=== PATIENT | female | born 1970 | race Two or more races ===

== ENCOUNTER 2022-09-13 08:40 | Outpatient (CLI) | payer OTHER | END 2022-09-13 08:45 | disposition home or self-care (01) | LOC: SONOGRAMA 08:40 | PROVIDERS: ATTEND Pathology Anatomic Pathology | DX: E04.2 Nontoxic multinodular goiter (principal); D34 Benign neoplasm of thyroid gland; E04.1 Nontoxic single thyroid nodule ==

== ENCOUNTER 2023-11-14 11:38 | Emergency (ER) | payer OTHER ==
[~2023-11-14] VITALS: Ht 154.9 cm; Wt 61.2 kg
[2023-11-14] MEDS ORDERED: DICLOFENAC SODI75 MG PO (14:22)
== END 2023-11-14 14:25 | disposition home or self-care (01) ==
LOC: ER 11:38
DX: S99.822A Other specified injuries of left foot, initial encounter (principal); X58.XXXA Exposure to other specified factors, initial encounter; Y93.9 Activity, unspecified; Y92.89 Other specified places as the place of occurrence of the external cause

== ENCOUNTER 2023-12-14 19:25 | Inpatient (IN) | payer OTHER ==
[~2023-12-14] VITALS: Ht 167.6 cm; Wt 6.8 kg
[~2023-12-14 19:25] MED LIST: DICLOFENAC SODI75 MG PO
[2023-12-14 22:03] LABS: HEMATOCRIT 39.6 % (36.0-45.00); MEAN CORPUSCULAR HEMOGLOBIN 33.3 pg (27.00-32.0); MEAN CORPUSCULAR HGB CONC 35.4 g/dl (32.0-36.0); PLATELET COUNT 220 K/uL (150-450); RED BLOOD COUNT 4.21 M/uL (4.00-6.00); RED CELL DISTRIBUTION WIDTH 13.5 % (11.5-14.5)
[2023-12-14 22:19] LABS: ALBUMIN 3.6 gm/dL (3.4-5.0); BILIRUBIN TOTAL 0.22 mg/dL (0.3-1.2); CALCIUM 8.7 mg/dL (8.5-10.1); CREATININE SERUM 0.67 mg/dL (0.55-1.02); GFR 92.43; GLOBULINA 3.9 G/DL (2.4-3.5); POTASSIUM 3.71 mEq/L (3.5-5.1); TOTAL PROTEIN 7.5 gm/dL (6.4-8.2)
== END 2023-12-19 19:07 | disposition home or self-care (01) | DRG 153 ==
LOC: ER 19:26 → SURH 12-15 13:41 → SEC-K 12-15 13:41 → SURH 12-15 16:39
PROVIDERS: Emergency Medicine; ADMIT Internal Medicine; ATTEND Internal Medicine
DX: J11.1 Influenza due to unidentified influenza virus with other respiratory manifestations (principal); J44.1 Chronic obstructive pulmonary disease with (acute) exacerbation; B96.0 Mycoplasma pneumoniae [M. pneumoniae] as the cause of diseases classified elsewhere; J20.9 Acute bronchitis, unspecified; F17.211 Nicotine dependence, cigarettes, in remission